=== PATIENT | female | born 1945 | race African-American/Black ===

== ENCOUNTER 2017-06-07 10:00 | Inpatient (IN) ==
[2017-06-07 10:51] LABS: Basophils # 0.1 10*3/uL (0.0-0.2); Basophils % 0.8 % (0.0-0.8); Eosinophils # 0.2 10*3/uL (0.0-0.87); Eosinophils % 3.2 % (0.00-10.9); Hematocrit 40.8 VOL% (35.7-47.0); Hemoglobin 13.4 GM/DL (12.0-16.0); Immature Granulocytes % 0.3 %; Immature Granulocytes Absolute 0.02 #; Lymphocytes # 2.4 10*3/uL (1.4-4.0); Mean Corpuscular HGB Conc 32.8 GM/DL (32-36); Mean Corpuscular Hemoglobin 30 PG (27-34); Mean Corpuscular Volume 90.1 FL (87-102); Mean Platelet Volume 10.6 FL (9.6-12.0); Monocytes # 0.6 10*3/uL (0.11-0.8); Monocytes % 10.1 % (1.7-12.7); Neutrophils # 2.7 10*3/uL (1.4-7.4); Neutrophils % 44.6 % (38.7-73.9); Platelet Count 310 T/CUMM (130-400); Red Blood Count 4.53 MC/CUMM (3.8-5.5); Red Cell Distribution Width 13.7 % (9.3-17.3)
[2017-06-07 10:59] LABS: Partial Thromboplastin Time 26.8 SECS (0-40)
[2017-06-07 11:19] LABS: Apearance,Urine Slightly Hazy (Clear); Blood, Urine Negative (Negative); Glucose,Urine (UA) Negative (Negative); Hyaline Casts,Urine 4 /LPF (0-3); Ketones,Urine Negative (Negative); Mucus,Urine Many /LPF (Occasional); Nitrite,Urine Negative (Negative); Protein,Urine Negative; RBC,Urine 3 /HPF (0-4); Squamous Epithelial Cell,Urine Occasional /HPF (0-10); Urine Specific Gravity 1.025 (1.001-1.035); WBC,Urine 3 /HPF (0-6)
[2017-06-07 11:22] LABS: Bilirubin,Urine Small mg/dL (Negative)
[2017-06-07 11:23] LABS: Urine Color Dark yellow (Yellow)
[2017-06-07 11:28] LABS: Free T4 (Free Thyroxine) 1.51 NG/DL (0.76-1.46); Troponin I Only 0.017 NG/ML (0.00-0.045)
[2017-06-07 11:33] LABS: Albumin 3.3 G/DL (3.4-5.0); Bilirubin,Total 1.2 MG/DL (0.2-1.0); Calcium 9.1 MG/DL (8.5-10.1); Osmolality,Calculated 281.1 MOS/KG (273-304); Potassium 3.4 MMOL/L (3.5-5.1); Thyroid Stimulating Hormone 1.97 uIU/ml (0.358-3.74)
[2017-06-07] MEDS ORDERED: SODIUM CHLORIDE 0.9% 500 ML IV STA (12:31)
[2017-06-07] MEDS ORDERED: POTASSIUM BICARB EFFERVESCENT 25 MEQ TABLET PO ONE ×2 (13:11→13:54)
[2017-06-07] MEDS ORDERED: ALBUTEROL 2.5 MG/3 ML NEB RESP TX PRN (16:15)
[2017-06-07] MEDS ORDERED: ONDANSETRON 4 MG/2 ML VIAL IV PRN (16:15)
[2017-06-07] MEDS: SODIUM CHLORIDE 0.9% 1,000 ML IV SCH (16:27)
[2017-06-07] MEDS: DOXAZOSIN 4 MG TABLET PO SCH (20:48)
[2017-06-07] MEDS: TAMSULOSIN 0.4 MG CAPSULE PO SCH (20:48)
[2017-06-07] MEDS: cloNIDine 0.1 MG TABLET PO SCH (20:49)
[2017-06-07] MEDS: DONEPEZIL 5 MG TABLET PO SCH (20:49)
[2017-06-07] MEDS ORDERED: DONEPEZIL 10 MG TABLET PO SCH (21:00)
[2017-06-07] MEDS ORDERED: ISOSORBIDE DINITRATE 20 MG TABLET PO SCH (21:00)
[2017-06-08] MEDS: hydrALAZINE 20 MG/1 ML VIAL IV PRN ×2 (00:11→06:06)
[2017-06-08 08:55] LABS: Blood Urea Nitrogen 10 MG/DL (7-18); Calcium 9.2 MG/DL (8.5-10.1); Glucose 102 MG/DL (74-106); Osmolality,Calculated 286.7 MOS/KG (273-304); Potassium 3.6 MMOL/L (3.5-5.1); Sodium 145 MMOL/L (136-145)
[2017-06-08] MEDS: DOXAZOSIN 4 MG TABLET PO SCH ×2 (08:58→21:03)
[2017-06-08] MEDS: NEBIVOLOL 10 MG TABLET PO SCH (08:58)
[2017-06-08] MEDS: cloNIDine 0.1 MG TABLET PO SCH ×3 (08:58→21:05)
[2017-06-08] MEDS: ISOSORBIDE DINITRATE SR 40 MG TABLET PO SCH (11:05)
[2017-06-08] MEDS ORDERED: ALPRAZolam 0.5 MG TABLET PO ONE (11:44)
[2017-06-08] MEDS: SODIUM CHLORIDE 0.9% 1,000 ML IV SCH (17:51)
[2017-06-08] MEDS: DONEPEZIL 5 MG TABLET PO SCH (21:03)
[2017-06-08] MEDS: ATORVASTATIN 10 MG TABLET PO SCH (21:04)
[2017-06-08] MEDS: TAMSULOSIN 0.4 MG CAPSULE PO SCH (21:04)
[2017-06-08] MEDS: DIPYRIDAMOLE/ASPIRIN 200-25 MG CAPSULE PO SCH (21:04)
[2017-06-08] MEDS: MEMANTINE 5 MG TABLET PO SCH (21:04)
[2017-06-09] MEDS: hydrALAZINE 20 MG/1 ML VIAL IV PRN (00:47)
[2017-06-09 05:21] LABS: Basophils % 0.6 % (0.0-0.8); Eosinophils # 0.2 10*3/uL (0.0-0.87); Eosinophils % 2.9 % (0.00-10.9); Hematocrit 35.4 VOL% (35.7-47.0); Immature Granulocytes % 0.2 %; Immature Granulocytes Absolute 0.01 #; Lymphocytes # 2.8 10*3/uL (1.4-4.0); Lymphocytes % 44.6 % (21.3-54.2); Mean Corpuscular HGB Conc 32.2 GM/DL (32-36); Mean Corpuscular Hemoglobin 29 PG (27-34); Mean Platelet Volume 11.1 FL (9.6-12.0); Monocytes # 0.7 10*3/uL (0.11-0.8); Neutrophils # 2.5 10*3/uL (1.4-7.4); Neutrophils % 40.7 % (38.7-73.9); Platelet Count 273 T/CUMM (130-400); Red Blood Count 3.89 MC/CUMM (3.8-5.5); Red Cell Distribution Width 13.9 % (9.3-17.3); White Blood Count 6.2 T/CUMM (4-12)
[2017-06-09 05:23] LABS: Hemoglobin 11.4 GM/DL (12.0-16.0)
[2017-06-09 05:43] LABS: Albumin 2.8 G/DL (3.4-5.0); Bilirubin,Total 0.8 MG/DL (0.2-1.0); Calcium 8.7 MG/DL (8.5-10.1); Osmolality,Calculated 284.8 MOS/KG (273-304); Potassium 3.7 MMOL/L (3.5-5.1); Risk Ratio 2.86; Total Protein 5.3 G/DL (6.4-8.3)
[2017-06-09] MEDS: DOXAZOSIN 4 MG TABLET PO SCH (08:47)
[2017-06-09] MEDS: NEBIVOLOL 10 MG TABLET PO SCH (08:47)
[2017-06-09] MEDS: DIPYRIDAMOLE/ASPIRIN 200-25 MG CAPSULE PO SCH ×2 (08:47→21:11)
[2017-06-09] MEDS: cloNIDine 0.1 MG TABLET PO SCH ×3 (08:47→21:11)
[2017-06-09] MEDS: MEMANTINE 5 MG TABLET PO SCH ×2 (08:47→21:11)
[2017-06-09] MEDS: ISOSORBIDE DINITRATE SR 40 MG TABLET PO SCH (08:47)
[2017-06-09] MEDS: ATORVASTATIN 10 MG TABLET PO SCH (21:10)
[2017-06-09] MEDS: TAMSULOSIN 0.4 MG CAPSULE PO SCH (21:10)
[2017-06-09] MEDS: DONEPEZIL 5 MG TABLET PO SCH (21:12)
[2017-06-09] MEDS: SODIUM CHLORIDE 0.9% 1,000 ML IV SCH (22:24)
[2017-06-10] MEDS: cloNIDine 0.1 MG TABLET PO PRN (01:28)
[2017-06-10] MEDS: DIPYRIDAMOLE/ASPIRIN 200-25 MG CAPSULE PO SCH ×2 (09:30→21:43)
[2017-06-10] MEDS: ISOSORBIDE DINITRATE SR 40 MG TABLET PO SCH (09:30)
[2017-06-10] MEDS: NEBIVOLOL 10 MG TABLET PO SCH (09:30)
[2017-06-10] MEDS: MEMANTINE 5 MG TABLET PO SCH ×2 (09:30→21:43)
[2017-06-10] MEDS: DOXAZOSIN 4 MG TABLET PO SCH (09:30)
[2017-06-10] MEDS: cloNIDine 0.1 MG TABLET PO SCH ×3 (09:31→21:43)
[2017-06-10] MEDS: SERTRALINE 25 MG TABLET PO SCH (09:36)
[2017-06-10] MEDS ORDERED: hydrALAZINE 20 MG/1 ML VIAL IV ONE (12:00)
[2017-06-10] MEDS: ATORVASTATIN 10 MG TABLET PO SCH (21:43)
[2017-06-10] MEDS: DONEPEZIL 5 MG TABLET PO SCH (21:43)
[2017-06-10] MEDS: TAMSULOSIN 0.4 MG CAPSULE PO SCH (21:43)
[2017-06-11] MEDS: cloNIDine 0.1 MG TABLET PO PRN (00:01)
[2017-06-11] MEDS: ISOSORBIDE DINITRATE SR 40 MG TABLET PO SCH (09:45)
[2017-06-11] MEDS: DIPYRIDAMOLE/ASPIRIN 200-25 MG CAPSULE PO SCH ×2 (09:45→21:04)
[2017-06-11] MEDS: cloNIDine 0.1 MG TABLET PO SCH ×3 (09:45→21:04)
[2017-06-11] MEDS: SERTRALINE 25 MG TABLET PO SCH (09:45)
[2017-06-11] MEDS: DOXAZOSIN 4 MG TABLET PO SCH (09:45)
[2017-06-11] MEDS: NEBIVOLOL 10 MG TABLET PO SCH (09:45)
[2017-06-11] MEDS: MEMANTINE 5 MG TABLET PO SCH ×2 (09:45→21:04)
[2017-06-11] MEDS: ATORVASTATIN 10 MG TABLET PO SCH (21:04)
[2017-06-11] MEDS: TAMSULOSIN 0.4 MG CAPSULE PO SCH (21:04)
[2017-06-11] MEDS: DONEPEZIL 5 MG TABLET PO SCH (21:04)
[2017-06-12] MEDS: ATORVASTATIN 10 MG TABLET PO SCH (00:45)
[2017-06-12] MEDS: TAMSULOSIN 0.4 MG CAPSULE PO SCH (00:45)
[2017-06-12] MEDS: cloNIDine 0.1 MG TABLET PO PRN (04:38)
[2017-06-12] MEDS: NEBIVOLOL 10 MG TABLET PO SCH (09:49)
[2017-06-12] MEDS: SERTRALINE 25 MG TABLET PO SCH (09:49)
[2017-06-12] MEDS: cloNIDine 0.1 MG TABLET PO SCH ×3 (09:49→20:45)
[2017-06-12] MEDS: DOXAZOSIN 4 MG TABLET PO SCH (09:50)
[2017-06-12] MEDS: ISOSORBIDE DINITRATE SR 40 MG TABLET PO SCH (09:50)
[2017-06-12] MEDS: MEMANTINE 5 MG TABLET PO SCH ×2 (09:50→20:45)
[2017-06-12] MEDS: DIPYRIDAMOLE/ASPIRIN 200-25 MG CAPSULE PO SCH ×2 (09:50→20:45)
[2017-06-12] MEDS: DONEPEZIL 5 MG TABLET PO SCH (20:45)
[2017-06-13] MEDS: cloNIDine 0.1 MG TABLET PO PRN (00:40)
[2017-06-13] MEDS: SERTRALINE 25 MG TABLET PO SCH (09:33)
[2017-06-13] MEDS: cloNIDine 0.1 MG TABLET PO SCH ×2 (09:33→14:18)
[2017-06-13] MEDS: MEMANTINE 5 MG TABLET PO SCH (09:33)
[2017-06-13] MEDS: ISOSORBIDE DINITRATE SR 40 MG TABLET PO SCH (09:33)
[2017-06-13] MEDS: DIPYRIDAMOLE/ASPIRIN 200-25 MG CAPSULE PO SCH (09:36)
[2017-06-13] MEDS: DOXAZOSIN 4 MG TABLET PO SCH (09:37)
[2017-06-13 11:31] VITALS: BP 117/70
== END 2017-06-13 15:06 | DRG 66 ==
LOC: N.ED 10:00 → N.EDINP 15:09 → N.2E 16:07
PROVIDERS: ADMIT Internal Medicine; ATTEND Internal Medicine